=== PATIENT | male | born 1985 | race Caucasian/White ===

== ENCOUNTER 2018-05-17 07:18 | Day surgery (SDC) | payer OTHER ==
[2018-05-17] MEDS ORDERED: MIDAZOLAM 1 MG/ML 2 ML INJ (10:02)
[2018-05-17] MEDS ORDERED: ONDANSETRON 4 MG INJ (10:02)
[2018-05-17] MEDS ORDERED: GLYCOPYRROLATE 0.4 MG INJ (10:02)
[2018-05-17] MEDS ORDERED: FENTAnyl 50 MCG/ML VIAL (10:02)
[2018-05-17] MEDS ORDERED: NEOSTIGMINE 3 MG/3 ML SYRINGE (10:02)
[2018-05-17] MEDS ORDERED: DEXAMETHASONE 4 MG/ML 1 ML INJ (10:02)
[2018-05-17] MEDS ORDERED: CEFAZOLIN 1 GM INJ (10:02)
[2018-05-17] MEDS ORDERED: ROCURONIUM 50 MG INJ (10:02)
[2018-05-17] MEDS ORDERED: PROPOFOL 20 ML (10:02)
[2018-05-17] MEDS: COCAINE 4% 4 ML TOP (10:38)
[2018-05-17] MEDS: LIDOCAINE 1%/EPI (1:100,000) (MDV) 20 ML INJ (10:39)
[2018-05-17] MEDS: BACITRACIN/POLYMYXIN 28.35 GM OINT TOP (10:54)
[2018-05-17] MEDS ORDERED: IPRATROPIUM (NEB) 0.5 MG/2.5 ML AMP HHN (11:00)
[2018-05-17] MEDS ORDERED: EPHEDrine SULFATE 50 MG/5 ML SYG IV (11:00)
[2018-05-17] MEDS ORDERED: TRIMETHOBENZAMIDE 100 MG/ML VIAL IM (11:00)
[2018-05-17] MEDS ORDERED: OXYCODONE/ACETAMINOPHEN (5/325) TAB PO ×2 (11:00)
[2018-05-17] MEDS ORDERED: FENTAnyl 50 MCG/ML VIAL IV ×3 (11:00)
[2018-05-17] MEDS ORDERED: ALBUTEROL 0.083% (NEB) 2.5 MG/3 ML AMP HHN (11:00)
[2018-05-17] MEDS ORDERED: LABETALOL HCL 20MG INJ IV (11:00)
[2018-05-17] MEDS ORDERED: HYDROmorphONE 1 MG/5 ML IV SYRINGE IV ×3 (11:00)
[2018-05-17] MEDS ORDERED: MIDAZOLAM 1 MG/ML 2 ML INJ IV (11:00)
[2018-05-17] MEDS ORDERED: hydrALAzine 20 MG INJ IV (11:00)
[2018-05-17] MEDS ORDERED: DIPHENHYDRAMINE 50 MG INJ IV (11:00)
[2018-05-17] MEDS: MEPERIDINE 25 MG INJ IV (11:55)
[2018-05-17] MEDS: ONDANSETRON 4 MG INJ IV (11:55)
== END 2018-05-17 17:30 | disposition home or self-care (01) ==
LOC: SDS 07:18
DX: J34.2 Deviated nasal septum (principal); J34.3 Hypertrophy of nasal turbinates; J34.89 Other specified disorders of nose and nasal sinuses
CPT/HCPCS: 30140; 88300